=== PATIENT | male | born 1970 | race Caucasian/White ===

== ENCOUNTER 2017-06-12 19:41 | Emergency (ER) | payer OTHER ==
[2017-06-12 19:52] VITALS: BMI 29.0
[2017-06-12] MEDS ORDERED: IBUPROFEN 600 MG TABLET (FP) PO ONE ×2 (20:13→20:24)
--- NOTE | 2017-06-12 20:18 | PDOC ---
History of Present Illness - General History Source: Patient Exam Limitations: No Limitations - History of Present Illness Initial Comments: 06/12/17 20:31 The patient is a 47 year old male, with a significant past medical history of GERD, embedded kidney stone, hernia (1993) who presents to the emergency department complaining of right elbow pain and swelling that began May at approx. 7pm. The patient reports he was at a concert in an outdoor field when he experienced what he believes was an insect bite. The patient states that he began experiencing pain and swelling in the right elbow that has been progressively worse. He reports associated symptoms of subjective fever and difficulty sleeping from the pain. He denies recent trauma and denies numbness, tingling, or loss of sensation. He denies any headache or dizziness. He denies any recent nausea, vomit, diarrhea or constipation. He denies any recent chest pain or shortness of breath. Allergies: NKA Primary Care Physician: Dr. Blanchard (Last check up approx. 1 month ago) <Christ Bustillos - Last Filed: 06/12/17 21:17> - General History Source: Patient Exam Limitations: No Limitations <Dora Powell - Last Filed: 06/12/17 21:40> - General Chief Complaint: Injury Stated Complaint: ELBOW INJURY Time Seen by Provider: 06/12/17 20:01 Past History <Christ Bustillos - Last Filed: 06/12/17 21:17> - Past Medical History Other medical history: denies - Immunization History Immunization Up to Date: Yes - Psycho/Social/Smoking Cessation Hx Anxiety: No Suicidal Ideation: No Smoking History: Never smoked Hx Alcohol Use: No <Dora Powell - Last Filed: 06/12/17 21:40> - Past Medical History Allergies/Adverse Reactions: Allergies Allergy/AdvReac Type Severity Reaction Status Date / Time No Known Allergies Allergy Verified 06/12/17 19:52 Home Medications: Ambulatory Orders No Home Medications 0 dose .ROUTE UTDICT 12/08/13 Clindamycin [Cleocin -] 300 mg PO TID #30 capsule 06/12/17 Ibuprofen [Motrin -] 600 mg PO TID PRN #30 tablet 06/12/17 Review of Systems - Review of Systems Comments:: 06/12/17 20:32 GENERAL/CONSTITUTIONAL: +Subjective fever. No chills. No weakness. HEAD, EYES, EARS, NOSE AND THROAT: No change in vision. No ear pain or discharge. No sore throat. CARDIOVASCULAR: No chest pain or shortness of breath. RESPIRATORY: No cough, wheezing, or hemoptysis. GASTROINTESTINAL: No nausea, vomiting, diarrhea or constipation. GENITOURINARY: No dysuria, frequency, or change in urination. MUSCULOSKELETAL: +Right elbow pain. No neck or back pain. SKIN: No rash NEUROLOGIC: No headache, vertigo, loss of consciousness, or change in strength/ sensation. ENDOCRINE: No increased thirst. No abnormal weight change. HEMATOLOGIC/LYMPHATIC: No anemia, easy bleeding, or history of blood clots. ALLERGIC/IMMUNOLOGIC: No hives or skin allergy. <Christ Bustillos - Last Filed: 06/12/17 21:17> *Physical Exam - Vital Signs Last Vital Signs Temp Pulse Resp BP Pulse Ox 99.9 F H 102 H 20 110/85 99 06/12/17 19:50 06/12/17 19:50 06/12/17 19:50 06/12/17 19:50 06/12/17 19:50 - Physical Exam Comments: 06/12/17 20:33 GENERAL: The patient is in no acute distress. EXTREMITIES: +Right elbow swelling, erythema and tenderness. Normal range of motion. No clubbing or cyanosis. SKIN: Warm, Dry, normal turgor, no rashes or lesions noted. <Christ Bustillos - Last Filed: 06/12/17 21:17> - Vital Signs Last Vital Signs Temp Pulse Resp BP Pulse Ox 99.9 F H 102 H 20 110/85 99 06/12/17 19:50 06/12/17 19:50 06/12/17 19:50 06/12/17 19:50 06/12/17 19:50 <Dora Powell - Last Filed: 06/12/17 21:40> ED Treatment Course - LABORATORY CBC & Chemistry Diagram: 06/12/17 20:45 06/12/17 20:45 <Christ Bustillos - Last Filed: 06/12/17 21:17> - LABORATORY CBC & Chemistry Diagram: 06/12/17 20:45 06/12/17 20:45 <Dora Powell - Last Filed: 06/12/17 21:40> Medical Decision Making - Medical Decision Making 06/12/17 21:17 You must return to the Emergency Department with any new complaints, if your symptoms persist and do not improve or if you develop new symptoms. Please call to follow up with your Primary Care physician in 1-2 days. <Christ Bustillos - Last Filed: 06/12/17 21:17> - Medical Decision Making 06/12/17 20:18 A portion of this note was documented by scribe services under my direction. I have reviewed the details of the note, within reason, and agree with the documentation with the following case summary and management plan written by me. Nursing documentation reviewed and incorporated into medical decision making 06/12/17 20:19 This is a 47 yo M no significant past medical history who presents to the ER with 2 days of right elbow pain Pt states that 2 days ago, elbow began to hurt while at work Pain worsened over the past 2 days ? Fevers Right elbow swelling Pt has no limitation in range of motion - pt is able to fully flex and fully extend his elbow Pt thinks he was bitten by something Can not recalll any trauma to the area On examination Selected Entries 06/12/17 19:50 Temperature 99.9 F H Pulse Rate 102 H Respiratory 20 Rate Blood Pressure 110/85 O2 Sat by Pulse 99 Oximetry (%) 06/12/17 20:28 Right elbow swelling overlying the elbow (+) cellulitis (+) boggy swollen olecranon bursa NO streaking NO limitations in range of motion Will do basic labs Will give Motrin for low grade temp Will give abx Will re assess ? obs vs. discharge and follow up tomorrow 06/12/17 20:35 Pt states that amoxicillin/penicillins do not work on him 06/12/17 21:05 Laboratory Tests 06/12/17 20:45 WBC 9.7 Hgb 13.6 Hct 40.2 Plt Count 258 Neutrophils % 60.8 D Lymphocytes % 25.2 D Monocytes % 10.0 Eosinophils % 3.4 Basophils % 0.6 06/12/17 21:28 Laboratory Tests 06/12/17 20:45 Sodium 140 Potassium 3.7 Chloride 105 Carbon Dioxide 25 Anion Gap 10 BUN 23 H Creatinine 1.1 Random Glucose 124 H 06/12/17 21:38 Upon re assessment Elbow no longer erythematous, pt continues to be able to range with no limitations Pain resolved <Dora Powell - Last Filed: 06/12/17 21:40> *DC/Admit/Observation/Transfer - Attestations Scribe Attestion: 06/12/17 20:33 Documentation prepared by Christ Bustillos, acting as medical claims examiner for Dora Powell MD. <Christ Bustillos - Last Filed: 06/12/17 21:17> - Discharge Dispostion Admit: No <Dora Powell - Last Filed: 06/12/17 21:40> Diagnosis at time of Disposition: Septic olecranon bursitis of right elbow - Discharge Dispostion Disposition: HOME Condition at time of disposition: Stable - Prescriptions Prescriptions: Clindamycin [Cleocin -] 300 mg PO TID #30 capsule Ibuprofen [Motrin -] 600 mg PO TID PRN #30 tablet PRN Reason: Pain - Referrals Referrals: Jad Blanchard [Primary Care Provider] - Harpreet Coleman MD [Staff Physician] - Brett Butcher MD [Staff Physician] - Carlos Long MD [Staff Physician] - - Patient Instructions Printed Discharge Instructions: DI for Elbow Bursitis, DI for Bursitis Additional Instructions: Mr. Kohler Thank you for coming in to the ER today At this time, it appears that you have an infection of the skin overlying your elbow and possibly the bursa Please take motrin for pain every 8 hours as needed for pain Please use antibiotics as prescribed Please take a probiotic while taking antibiotics Conservative treatment for olecranon bursitis involves control of pain and inflammation: P rotect - Use padding over your elbow R est - Avoid activities that exacerbate pain I ce - Cryotherapy can relieve pain and decrease inflammation C ompression - Elastic dressings can ease pain E levation - Raise the affected limb above the level of the heart You MUST return to the ER for fever (temp > 100.6), inability to flex or extend your elbow fully You MUST follow up with the Orthopedic doctor (either the names given to you or an orthopedist associated with [facility]) within 2-3 days You should document the appearance of your elbow with your cell phone to help to determine if things are worsening or improving - Post Discharge Activity Work/School Note: Back to Work
[2017-06-12] MEDS ORDERED: CLINDAMYCIN HCL 150 MG CAPSULE (FP) PO ONE (20:36)
[2017-06-12] MEDS ORDERED: CLINDAMYCIN HCL 150 MG CAPSULE (FP) ONE (20:39)
[2017-06-12 20:55] LABS: BASOPHIL 0.6 % (0-2.0); EOSINOPHIL 3.4 % (0-4.5); MCHC 33.9 g/dl (32.0-35.9); MEAN CELL VOLUME 79.7 fl (80-96); MEAN PLT VOLUME 7.9 fl (7.5-11.1); NEUTROPHILS 60.8 % (42.8-82.8); PLATELET COUNT 258 K/MM3 (134-434); RDW 13.6 % (11.9-15.9); WHITE BLOOD COUNT 9.7 K/mm3 (4.0-10.0)
[2017-06-12 21:19] LABS: ANION GAP 10 (8-16); CO2 25 mmol/L (21-32); CREATININE 1.1 mg/dL (0.7-1.3); GLUCOSE,RANDOM 124 mg/dL (74-106)
[2017-06-12 21:33] VITALS: BP 116/70; PULSE 87; TEMP 98.9
== END 2017-06-12 21:55 | disposition home or self-care (01) ==
LOC: JER 19:41
DX: M71.121 Other infective bursitis, right elbow (principal); L03.113 Cellulitis of right upper limb
CPT/HCPCS: 36415; 80048; 85025; 87040; 99282-25

== ENCOUNTER 2019-09-20 16:12 | Emergency (ER) | payer OTHER ==
[2019-09-20 16:18] VITALS: BP 131/78; PULSE 79; TEMP 97.7; BMI 29.8
[2019-09-20] MEDS ORDERED: LIDOCAINE HCL 1%, 10 MG/ML (20ML VIAL) ONE (16:51)
--- NOTE | 2019-09-20 17:08 | PDOC ---
History of Present Illness - General Chief Complaint: Laceration Stated Complaint: LACERATION Time Seen by Provider: 09/20/19 16:30 - History of Present Illness Initial Comments: 09/20/19 17:05 49-year-old male without comorbidities presents for laceration on his left middle finger while using a twill cutter Past History - Past Medical History Allergies/Adverse Reactions: Allergies Allergy/AdvReac Type Severity Reaction Status Date / Time No Known Allergies Allergy Verified 09/20/19 16:18 Home Medications: Ambulatory Orders No Home Medications 0 dose .ROUTE UTDICT 12/08/13 Clindamycin [Cleocin -] 300 mg PO TID #30 capsule 06/12/17 Ibuprofen [Motrin -] 600 mg PO TID PRN #30 tablet 06/12/17 COPD: No - Immunization History Immunization Up to Date: Yes - Psycho Social/Smoking Cessation Hx Smoking History: Never smoked Have you smoked in the past 12 months: No Information on smoking cessation initiated: No Hx Alcohol Use: (SOCIAL) Drug/Substance Use Hx: No Review of Systems - Review of Systems Integumentary: Yes: See HPI *Physical Exam - Vital Signs Last Vital Signs Temp Pulse Resp BP Pulse Ox 97.7 F 79 18 131/78 100 09/20/19 16:16 09/20/19 16:16 09/20/19 16:16 09/20/19 16:16 09/20/19 16:16 - Physical Exam 09/20/19 17:05 There is a 1 cm laceration on the palmar aspect of the left middle finger on the skin overlying the distal phalanx. No gross sensorimotor deficits FDS and FDP work independently. Medical Decision Making - Medical Decision Making 09/20/19 17:06 The wound was anesthetized with 1% lidocaine without epinephrine. Explored to its base in a bloodless field without any identification of foreign body. Copiously irrigated with normal saline. Edges approximated using 3-0 nylon 4 simple sutures in a simple interrupted fashion . Dry sterile dressing was place Discharge - Discharge Information Problems reviewed: Yes Clinical Impression/Diagnosis: Laceration Condition: Stable Disposition: HOME - Admission No - Follow up/Referral - Patient Discharge Instructions Additional Instructions: Please keep the dressing on for the next 48 hours. After 48 hours you may remove the dressing wash the area with soap and water and leave it open to air. If you must work please cover the area with a dry sterile dressing such as a large Band-Aid. Keep the area open to air as much as possible. Return to the emergency room for any worsening symptoms or concern for infection such as redness, swelling, increasing pain, or drainage. Other than that sutures out in days Tylenol and Motrin as directed for pain. - Post Discharge Activity
[2019-09-20] MEDS ORDERED: BACITRACIN 15 GM TUBE TOPICAL OINTMENT ONE (17:12)
== END 2019-09-20 17:30 | disposition home or self-care (01) ==
LOC: JERFT 16:12
PROC: 0HQGXZZ Repair Left Hand Skin, External Approach (ICD-10-PCS; principal; 2019-09-20)
DX: S61.213A Laceration without foreign body of left middle finger without damage to nail, initial encounter (principal); W26.0XXA Contact with knife, initial encounter; Y93.89 Activity, other specified; Y92.410 Unspecified street and highway as the place of occurrence of the external cause
CPT/HCPCS: 99283-25

== ENCOUNTER 2019-10-05 14:51 | Emergency (ER) | payer OTHER ==
[2019-10-05 14:54] VITALS: BP 128/69; PULSE 88; TEMP 98; BMI 29.9
--- NOTE | 2019-10-05 14:57 | PDOC ---
Rapid Medical Evaluation Time Seen by Provider: 10/05/19 14:53 Medical Evaluation: Allergies Allergy/AdvReac Type Severity Reaction Status Date / Time No Known Allergies Allergy Verified 09/20/19 16:18 10/05/19 14:53 I have performed a brief in-person evaluation of this patient. The patient presents with a chief complaint of: here for suture removal from left hand, pt requesting anesthesia for removal due to re- injury yesterday Pertinent physical exam findings: left 3rd digit sutures dry and intact I have ordered the following: none. discussed with pt anesthesia is not needed but continued to insist. Pt to proceed to FT The patient will proceed to the ED for further evaluation. Discharge Disposition - Diagnosis Encounter for removal of sutures - Discharge Dispostion Disposition: HOME Condition at time of disposition: Stable - Referrals - Patient Instructions Printed Discharge Instructions: DI for Suture Removal Additional Instructions: You had your sutures/davie removed today. Please use bacitracin on the site for the next week. Avoid soaking the area with water for 1 more week as to what the wound fully heal. Follow-up with her primary care doctor as needed Return to the emergency department if you develop fevers, drainage from the site , increased pain, or have any changes in your symptoms. - Post Discharge Activity
--- NOTE | 2019-10-05 16:07 | PDOC ---
History of Present Illness - General Chief Complaint: Suture/Staple Removal(Here) Stated Complaint: REMOVE STITCHES Time Seen by Provider: 10/05/19 14:53 History Source: Patient Exam Limitations: No Limitations Past History - Travel Traveled outside of the country in the last 30 days: No Close contact w/someone who was outside of country & ill: No - Past Medical History Allergies/Adverse Reactions: Allergies Allergy/AdvReac Type Severity Reaction Status Date / Time No Known Allergies Allergy Verified 10/05/19 14:54 Home Medications: Ambulatory Orders No Home Medications 0 dose .ROUTE UTDICT 12/08/13 Clindamycin [Cleocin -] 300 mg PO TID #30 capsule 06/12/17 Ibuprofen [Motrin -] 600 mg PO TID PRN #30 tablet 06/12/17 COPD: No - Immunization History Immunization Up to Date: Yes - Psycho Social/Smoking Cessation Hx Smoking History: Never smoked Have you smoked in the past 12 months: No Hx Alcohol Use: (SOCIAL) Drug/Substance Use Hx: No Review of Systems - Review of Systems Able to Perform ROS?: Yes Comments:: 10/05/19 16:18 CONSTITUTIONAL: Absent: fever, chills, diaphoresis, generalized weakness, malaise, loss of appetite SKIN: Present: sutures in L middle finger Absent: rash, itching, pallor NEUROLOGIC: Absent: headache, focal weakness or paresthesias, dizziness, unsteady gait, seizure, mental status changes, bladder or bowel incontinence PSYCHIATRIC: Absent: anxiety, depression, suicidal or homicidal ideation, hallucinations. Is the patient limited Maori proficient: No *Physical Exam - Vital Signs Last Vital Signs Temp Pulse Resp BP Pulse Ox 98 F 88 18 128/69 98 10/05/19 14:52 10/05/19 14:52 10/05/19 14:52 10/05/19 14:52 10/05/19 14:52 - Physical Exam 10/05/19 16:20 GENERAL: The patient is awake, alert, and fully oriented, in no acute distress. HEAD: Normal with no signs of trauma. EYES: Pupils equal, round and reactive to light, extraocular movements intact, sclera anicteric, conjunctiva clear. EXTREMITIES: Normal range of motion, no edema. NEUROLOGICAL: Normal speech, normal gait. PSYCH: Normal mood, normal affect. SKIN: 4 simple interrupted sutures placed in the distal L 3rd finger with good healing. Wound is well approximated. No erythema noted. Warm, Dry, normal turgor, no rashes or lesions noted. Medical Decision Making - Medical Decision Making 10/05/19 16:24 Patient is a 49-year-old male who presents the ER for suture removal in his left third finger. It was repaired in our ER 2 weeks ago. Denies fevers, chills, pain to the finger, drainage. A/P: Suture removal On exam for simple interrupted sutures placed in the distal left third finger. Patient requested anesthesia. Digital block of the left third finger placed 4 simple interrupted sutures removed. Wound is well approximated with no signs of secondary infection Discharge home I discussed the physical exam findings, ancillary test results and final diagnoses with the patient. I answered all of the patient's questions. The patient was satisfied with the care received and felt comfortable with the discharge plan and treatment plan. The Patient agrees to follow up with the primary care physician/specialist within 24-72 hours. Return precautions were given. Discharge - Discharge Information Problems reviewed: Yes Clinical Impression/Diagnosis: Encounter for removal of sutures Condition: Stable Disposition: HOME - Admission No - Follow up/Referral - Patient Discharge Instructions Patient Printed Discharge Instructions: DI for Suture Removal Additional Instructions: You had your sutures/davie removed today. Please use bacitracin on the site for the next week. Avoid soaking the area with water for 1 more week as to what the wound fully heal. Follow-up with her primary care doctor as needed Return to the emergency department if you develop fevers, drainage from the site , increased pain, or have any changes in your symptoms. - Post Discharge Activity
== END 2019-10-05 16:24 | disposition home or self-care (01) ==
LOC: JERFT 14:51
DX: Z48.817 Encounter for surgical aftercare following surgery on the skin and subcutaneous tissue (principal); Z48.02 Encounter for removal of sutures
CPT/HCPCS: 99281-25

== ENCOUNTER 2019-11-20 13:28 | Emergency (ER) | payer OTHER ==
[2019-11-20 14:03] VITALS: BP 112/76; PULSE 77; TEMP 98.7; BMI 44.3
[2019-11-20] MEDS ORDERED: predniSONE 20 MG TABLET (UD) PO ONE (14:14)
[2019-11-20] MEDS ORDERED: ACETAMINOPHEN 325 MG TABLET (FP) PO ONE (14:14)
[2019-11-20] MEDS ORDERED: predniSONE 20 MG TABLET (UD) ONE (14:17)
[2019-11-20] MEDS ORDERED: ACETAMINOPHEN 325 MG TABLET (FP) ONE (14:17)
--- NOTE | 2019-11-20 14:17 | PDOC ---
History of Present Illness - General Chief Complaint: Injury Stated Complaint: RT WRIST PAIN Time Seen by Provider: 11/20/19 14:10 History Source: Patient (R wrist pain and swelling ) - History of Present Illness Associated Symptoms: denies: fever/chills Past History - Travel Traveled outside of the country in the last 30 days: No Close contact w/someone who was outside of country & ill: No - Past Medical History Allergies/Adverse Reactions: Allergies Allergy/AdvReac Type Severity Reaction Status Date / Time No Known Allergies Allergy Verified 11/20/19 13:48 Home Medications: Ambulatory Orders No Home Medications 0 dose .ROUTE UTDICT 12/08/13 Clindamycin [Cleocin -] 300 mg PO TID #30 capsule 06/12/17 Ibuprofen [Motrin -] 600 mg PO TID PRN #30 tablet 06/12/17 Methylprednisolone [Medrol Dose Cullen] 4 mg PO ASDIR #21 tablet 11/20/19 Naproxen [Naprosyn -] 500 mg PO BID #14 tablet 11/20/19 COPD: No - Immunization History Immunization Up to Date: Yes - Psycho Social/Smoking Cessation Hx Smoking History: Never smoked Have you smoked in the past 12 months: No Hx Alcohol Use: No Drug/Substance Use Hx: No Review of Systems - Review of Systems Constitutional: No: Chills, Fever Musculoskeletal: Yes: Joint Pain (Right wrist), Joint Swelling. No: Joint Stiffness *Physical Exam - Vital Signs Last Vital Signs Temp Pulse Resp BP Pulse Ox 98.7 F 77 19 112/76 100 11/20/19 14:00 11/20/19 14:00 11/20/19 14:00 11/20/19 14:11/20/19 14:00 - Physical Exam General Appearance: Yes: Nourished Extremity: positive: Normal Capillary Refill, Swelling, Other (R wrist: + tenderness, pain on ROM, swelling in ulnar,, + swelling in fingers, sensation intact). negative: Erythema Neurologic: positive: direct of real estate II-XII NML intact, Fully Oriented, Alert, Normal Mood/ Affect, Normal Response, Motor Strength 5/5 ED Treatment Course - LABORATORY CBC & Chemistry Diagram: 11/20/19 14:30 - RADIOLOGY Radiology Studies Ordered: Category Date Time Status WRIST- RIGHT [RAD] Stat Radiology 11/20/19 14:14 Ordered Medical Decision Making - Medical Decision Making 11/20/19 14:16 49 years old male with no prior medical history presents with atraumatic right wrist and hand swelling since yesterday. Patient is an commercial electrician by trade he denies any fever, chills, history of arthritis or tendinitis. Patient has been taking Motrin since last night with no relief Exam consistent with swelling in entire hand pain or range of motion in the ulnar aspect of wrist. Pain with range of motion. Patient took 4 Motrins prior to arrival to the emergency room about 2 hours ago. We will do an x-ray Tylenol prednisone and a CBC to check for any acute infection. Disposition pending 11/20/19 15:15 suspect gout given acute pain, pt endorses h/o gout on his right feet, admits to wine intake last niight no wbc xray wnl nsaids/medrol dose cullen ortho referral if pain persist Discharge - Discharge Information Problems reviewed: Yes Clinical Impression/Diagnosis: Gout Qualifiers: Gout site: wrist Gout etiology: unspecified cause Chronicity: acute Laterality : right Qualified Code(s): M10.9 - Gout, unspecified Condition: Stable Disposition: HOME - Admission No - Additional Discharge Information Prescriptions: Methylprednisolone [Medrol Dose Cullen] 4 mg PO ASDIR #21 tablet Naproxen [Naprosyn -] 500 mg PO BID #14 tablet - Follow up/Referral Referrals: Harpreet Coleman MD [Staff Physician] - - Patient Discharge Instructions Patient Printed Discharge Instructions: DI for Gout Additional Instructions: Your exam is consistent with a gout attack. Your x-ray was normal and your blood count. Please start Medrol Dose cullen as previously discussed tomorrow. You may also take Naprosyn for pain. Make sure there is food in your stomach. If symptoms persist after the above treatment you may follow-up with orthopedic. Please return to the emergency room if worsening symptoms occur. - Post Discharge Activity
[2019-11-20 14:49] LABS: HEMATOCRIT 41.4 % (35.4-49); HEMOGLOBIN 13.7 GM/dL (11.7-16.9); MCH 26.9 pg (25.7-33.7); MCHC 33.2 g/dl (32.0-35.9); MEAN CELL VOLUME 81.1 fl (80-96); MEAN PLT VOLUME 7.9 fl (7.5-11.1); PLATELET COUNT 299 K/MM3 (134-434); RBC 5.11 M/mm3 (4.00-5.60); RDW 13.9 % (11.9-15.9)
== END 2019-11-20 15:11 | disposition home or self-care (01) ==
LOC: JER 13:28
DX: M10.9 Gout, unspecified (principal)
CPT/HCPCS: 36415; 73110-TC-RT-FY; 85027; 99284-25